=== PATIENT | male | born 1975 | race Two or more races ===

== ENCOUNTER 2018-11-12 15:32 | Emergency (ER) | payer OTHER ==
[~2018-11-12] VITALS: Ht 177.8 cm; Wt 72.6 kg
[2018-11-12] MEDS ORDERED: IBUPROFEN 400 MG TABLET PO ONE (16:00)
[2018-11-12] MEDS ORDERED: IBUPROFEN 400 MG TABLET ONE (16:18)
[2018-11-12 16:50] VITALS: BP 175/112
== END 2018-11-12 17:01 | disposition home or self-care (01) ==
LOC: ER 15:46
DX: S63.591A Other specified sprain of right wrist, initial encounter (principal); I16.0 Hypertensive urgency; I10 Essential (primary) hypertension; Z60.2 Problems related to living alone; X50.1XXA Overexertion from prolonged static or awkward postures, initial encounter; Y93.89 Activity, other specified; Y92.520 Airport as the place of occurrence of the external cause; Y99.0 Civilian activity done for income or pay
CPT/HCPCS: 73110